=== PATIENT | male | born 1950 | race Caucasian/White ===

== ENCOUNTER → 2017-11-16 07:33 | Outpatient (CLI) | payer OTHER, SELFPAY ==
[2017-11-16 10:09] LABS: Prostate Specific Antigen Scrn 4.71 ng/mL (0.1-4.0)
== END ==
PROVIDERS: PCP Family Medicine; Visit Provider Family Medicine
DX: R97.20 Elevated prostate specific antigen [PSA] (principal)
CPT/HCPCS: 36415; G0103

== ENCOUNTER → 2018-06-04 08:55 | Outpatient (CLI) | payer OTHER, SELFPAY | PROVIDERS: Family Provider Family Medicine; PCP Family Medicine; Visit Provider Physician Assistant | DX: R68.89 Other general symptoms and signs (principal) | CPT/HCPCS: 87400 ==

== ENCOUNTER → 2019-01-11 12:51 | Outpatient (CLI) | payer OTHER, SELFPAY ==
--- NOTE | 2019-01-11 12:53 | DI.US.S_ITS ---
PROCEDURE: US ABDOMEN COMPLETE INDICATIONS: POST PRANDIAL NAUSEA,VOMITING,DIARRHEA, ?GB TECHNIQUE: Real-time scanning was performed of the abdominal and retroperitoneal organs, with image documentation. COMPARISON: None. FINDINGS: Liver: The liver demonstrates diffusely increased echotexture without focal abnormalities consistent with chronic hepatocellular disease/hepatic steatosis. Focal fatty sparing near the gallbladder fossa. Gallbladder: Gallbladder contains a small 5 mm polyp versus adherent gallstone. No associated vascularity. No gallbladder wall thickening. No pericholecystic fluid. Negative sonographic Mendoza's. Biliary ducts: Intrahepatic bile ducts are non-dilated. Extrahepatic bile duct caliber measures 4 mm. Normal is 6-7 mm or less in diameter, or 10 mm or less post-cholecystectomy. Pancreas: Visualized portions of the pancreas are sonographically normal. Spleen: Spleen is normal in size and homogeneous in echotexture. Kidneys: Kidneys are normal in size and echotexture. Right kidney measures 11.1 cm long; left kidney measures 11.6 cm long. No hydronephrosis or nephrolithiasis. No solid masses. Aorta: Visualized aorta is normal in caliber at less than 3 cm. Iliacs: Common iliac arteries not well-visualized due to bowel gas. IVC: Intrahepatic inferior vena cava is patent. Miscellaneous: No free abdominal fluid. IMPRESSION: 1. The liver demonstrates diffusely increased echotexture without focal abnormalities consistent with chronic hepatocellular disease/hepatic steatosis. Consider correlation with LFTs. 2. There is a 5 mm echogenic focus within the gallbladder which may represent a adherent gallstone versus small polyp. No further imaging followup required. No sonographic evidence for acute cholecystitis. Dictated by: Kumar Mercedes M.D. on 01/11/2019 at 14:06 Approved by: Kumar Mercedes M.D. on 01/11/2019 at 14:23
--- NOTE | 2019-01-11 12:53 | DI.RAD.S_ITS ---
PROCEDURE: FL BARIUM SWALLOW INDICATIONS: Dysphagia.R/O motility disorder/stricture/large hiatal herni COMPARISON: None. FINDINGS: Function: There is normal esophageal peristalsis; however, there was slight delayed transit of ingested oral contrast during single contrast prone imaging. No elicited gastroesophageal reflux. There is normal transit of a calibrated barium tablet through the esophagus into the stomach. Morphology: Air-contrast images demonstrate normal mucosal morphology. Single contrast views show no esophageal strictures, extrinsic mass effects, or diverticula. Small-moderate hiatal hernia is identified. Limited images of the stomach demonstrate normal appearance. IMPRESSION: Wvnsj-ngrfijnl-bkuht hiatal hernia. Slight delayed transit of oral contrast during prone imaging without evidence for tertiary contractions. No gastroesophageal reflux could be elicited. Dictated by: Kumar Mercedes M.D. on 01/11/2019 at 18:03 Approved by: Kumar Mercedes M.D. on 01/11/2019 at 18:06
== END ==
PROVIDERS: PCP Family Medicine; Visit Provider Specialist
DX: R11.2 Nausea with vomiting, unspecified (principal); R19.7 Diarrhea, unspecified; R13.10 Dysphagia, unspecified; K44.9 Diaphragmatic hernia without obstruction or gangrene
CPT/HCPCS: 74220; 76700

== ENCOUNTER 2019-01-26 06:34 | Day surgery (SDC) | payer OTHER, SELFPAY ==
--- NOTE | 2019-01-26 | PATH_ITS ---
[facility] Accession Number: [id number] . 01 Material submitted: . PART A: esophagus, E-G Junction - GE JUNCTION BIOPSY PART B: colon - ASCENDING COLON BIOPSY PART C: colon - 35 CM COLON BIOPSY . 02 Diagnosis: . A. Gastroesophageal Junction, Biopsy: Squamocolumnar junctional mucosa with mild chronic inflammation. Negative for specialized intestinal metaplasia, dysplasia or malignancy. . B. Ascending Colon, Biopsy: Tubular adenoma. . C. Colon at 35 cm, Biopsy: Hyperplastic polyp. [facility]V 01/30/2019 1550 Local . 02 Electronically signed: . Florin Scott MD, PhD, Pathologist NPI- [id number] . 01 Gross description: . Part A: GE JUNCTION BIOPSY: Received in formalin are 2 fragment(s) of gonzalez, soft tissue measuring 0.1 x 0.1 x 0.1 cm to 0.2 x 0.2 x 0.2 cm submitted entirely in 1 cassette(s) Part B: ASCENDING COLON BIOPSY: Received in formalin are 4 fragment(s) of gonzalez, soft tissue measuring 0.1 x 0.1 x 0.1 cm to 0.3 x 0.3 x 0.3 cm submitted entirely in 1 cassette(s) Part C: 35 CM COLON BIOPSY: Received in formalin are 2 fragment(s) of gnozalez, soft tissue measuring 0.2 x 0.2 x 0.2 cm to 0.3 x 0.2 x 0.2 cm submitted entirely in 1 cassette(s) [place] [place] 1928 Local . 02 Pathologist provided ICD-10: K20.9, D12.2, K63.5 . 02 CPT . 445265, 618002, [id number] Performed at: 01 [facility] [address] [place] [address], [place], [place] [id number] MD Star Rincon MD Phone: [phone] Performed at: [address] [facility] [id number] [place], [place] [id number] MD Marva Aguilar MD Phone: [phone]
[2019-01-26 07:15] VITALS: BP 143/76; PULSE 76; RESP 16; TEMP 36.8; O2SAT 98; BMI 34.0
[2019-01-26] MEDS: SODIUM CHLORIDE 0.9% 1,000 ML 200 ML IV (07:30)
--- NOTE | 2019-01-26 08:03 | PM.PREOP ---
Pre-operative Note Interval Note History & Physical reviewed/Exam performed by Physician: Yes Changes to H&P: No ASA Class (for procedural sedation): II
[2019-01-26] MEDS: fentaNYL 250 MCG/5 ML INJ IV (08:49)
[2019-01-26] MEDS: MIDAZOLAM 5 MG/5 ML VIAL IV (08:49)
[2019-01-26] MEDS: LIDOCAINE 4% SOLN 50 ML 20 ML TOP (08:50)
--- NOTE | 2019-01-26 08:58 | PM.OP.ENDO ---
Operative Date/Time/Diagnoses Date of procedure: 01/26/19 Time of procedure: 09:04 Pre-op diagnosis: Dysphagia. Screening exam. Last colonoscopy over 5 years ago. Post-op diagnosis: same (Polyps. Diverticulosis. No significant esophageal narrowing. 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 Colonoscopy with cold biopsy Same procedure as scheduled: Yes Indications: Screening. Determine source of dysphagia. Surgeon: Pepe Jules Procedure Notes SCOAP/Timeout: Perform Procedure in detail: The patient had topical anesthetic applied to oropharynx. She was placed in left lateral decubitus position and underwent IV sedation directed by the surgeon consisting of fentanyl and Versed. A bite block was inserted and the scope was advanced through it into the esophagus. The esophagus was unremarkable. GE junction was noted at 40 cm from the incisors. There was some tongues of red tissue extending above the GE junction.. The stomach insufflated well. There were no lesions seen in the body, antrum or at the incisura. The pyloric channel was patent. The duodenum was unremarkable to the 4th part. The scope was brought back into the stomach and retroflexed. The proximal stomach normal in appearance. The scope was straightened and brought out through the esophagus again. Biopsies were taken at the GE junction. No other lesions were seen. The scope was removed and the patient tolerated the procedure well. The patient was repositioned. The patient was in the left lateral decubitus position and underwent additional IV sedation directed by the surgeon consisting of fentanyl and Versed. Digital exam was unremarkable. I could only feel the distal portion of the prostate which felt normal.. The scope was inserted and advanced through the rectum into the sigmoid, descending, transverse, and ascending colon. A stiffener was inserted pressure applied in order to make our way into the cecum proper.. The cecum was reached identified by the ileocecal valve and the appendiceal opening. The ileocecal valve was briefly cannulated. The terminal ileum was normal in appearance. The scope was gradually brought out. An ascending polyp and 2 smaller polyps at about 25-35 cm were found and removed. They were all tiny.. The scope ultimately was retroflexed in the rectum. The appearance was normal. The scope was removed and the patient tolerated the procedure well. Prep was very good. 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
[2019-01-26 08:59] VITALS: BP 102/66; PULSE 62; RESP 16; TEMP 36.2; O2SAT 95
[2019-01-26 09:04] VITALS: BP 96/61; PULSE 63; RESP 11; O2SAT 95
[2019-01-26 09:09] VITALS: BP 105/65; PULSE 75; RESP 11; O2SAT 98
[2019-01-26 09:14] VITALS: BP 117/72; PULSE 64; RESP 11; TEMP 36.4; O2SAT 96
[2019-01-26 09:20] VITALS: BP 118/64; PULSE 61; RESP 15; TEMP 36.3; O2SAT 97
== END 2019-01-26 09:35 | disposition home or self-care (01) ==
PROVIDERS: PCP Family Medicine; Visit Provider Specialist
PROC: 0DJ08ZZ Inspection of Upper Intestinal Tract, Via Natural or Artificial Opening Endoscopic (ICD-10-PCS; CPT 43235; principal; 2019-01-26 07:45)
PROC: 0DJD8ZZ Inspection of Lower Intestinal Tract, Via Natural or Artificial Opening Endoscopic (ICD-10-PCS; CPT 45378; 2019-01-26 07:45)
DX: Z12.11 Encounter for screening for malignant neoplasm of colon (principal); R13.10 Dysphagia, unspecified; K57.30 Diverticulosis of large intestine without perforation or abscess without bleeding; K20.9 Esophagitis, unspecified; D12.2 Benign neoplasm of ascending colon; K63.5 Polyp of colon
CPT/HCPCS: 45380; 43239; 99152; 99153; J2250; J3010

== ENCOUNTER → 2019-03-21 13:43 | Outpatient (CLI) | payer OTHER, SELFPAY ==
--- NOTE | 2019-03-21 | DI.RAD.S_ITS ---
PROCEDURE: XR HIP W PEL IF DONE RT 2V INDICATIONS: RIGHT HIP PAIN TECHNIQUE: AP pelvis with lateral view(s) of the right hip(s). COMPARISON: None. FINDINGS: Bones: No fractures or dislocations. Pelvic ring appears intact. No suspicious bony lesions. Severe right hip joint degeneration with loss of joint space, periarticular osteophyte formation as well as subchondral sclerosis and cyst formation. Mild left hip joint degeneration is present. Soft tissues: The visualized bowel gas pattern is normal. No suspicious soft tissue calcifications. IMPRESSION: Severe degenerative joint disease of the right hip. Dictated by: María Mcmahon M.D. on 03/21/2019 at 17:35 Approved by: María Mcmahon M.D. on 03/21/2019 at 17:36
== END ==
PROVIDERS: PCP Family Medicine; Visit Provider Family Medicine
DX: M25.551 Pain in right hip (principal); M16.11 Unilateral primary osteoarthritis, right hip
CPT/HCPCS: 73502